=== PATIENT | male | born 1965 | race Caucasian/White ===

== ENCOUNTER 2023-10-07 16:18 | Emergency (ER) | payer OTHER, MEDICARE ==
[~2023-10-07] VITALS: Ht 177.8 cm; Wt 90.9 kg
[2023-10-07] MEDS: LORazepam 1 MG tablet PO ONE (18:10)
[2023-10-07 18:11] LABS: BASOPHILS # (AUTO) 0.1 X10'3 (0-0.2); BASOPHILS % (AUTO) 1.2 % (0-1); EOSINOPHILS % (AUTO) 0.6 % (0-6); HEMATOCRIT 43.9 % (42.0-52.0); HEMOGLOBIN 14.9 g/dl (14.0-17.9); LYMPHOCYTES # (AUTO) 1.3 X10'3 (1.1-4.8); LYMPHOCYTES % (AUTO) 19.1 % (21-51); MEAN CORPUSCULAR VOLUME 91.1 FL (78-98); MEAN PLATELET VOLUME 8.1 FL (7.4-10.4); MONOCYTES # (AUTO) 0.6 X10'3 (0-0.9); MONOCYTES % (AUTO) 7.8 % (2-12); NEUTROPHILS % (AUTO) 71.3 % (42-75); PLATELET COUNT 425 X10'3 (140-440); RED BLOOD COUNT 4.82 X10'6 (4.70-6.10); RED CELL DISTRIBUTION WIDTH 13.7 % (11.5-14.5); WHITE BLOOD COUNT 7.1 X10'3 (4.5-11.0)
[2023-10-07 18:17] LABS: BILIRUBIN,URINE NEGATIVE (Neg); CLARITY,URINE CLEAR (Clear); COLOR,URINE YELLOW (Yellow); GLUCOSE, URINE NEGATIVE (Neg); KETONES,URINE NEGATIVE (Neg); LEUKOCYTE ESTERASE ,URINE NEGATIVE (Neg); NITRITES, URINE NEGATIVE (Neg); OCCULT BLOOD,URINE NEGATIVE (Neg); PROTEIN,URINE NEGATIVE (Neg); UROBILINOGEN,URINE 0.2 E.U/dL (0.2-1.0)
[2023-10-07 18:20] LABS: UA COLLECTION TYPE VOIDED
[2023-10-07] MEDS ORDERED: ALBU8HFA INH (18:20)
[2023-10-07] MEDS ORDERED: CARB-212 PO (18:20)
[2023-10-07 18:22] LABS: ANION GAP 5 (8-16); BLOOD UREA NITROGEN 13 MG/DL (7-18); BUN/CREATININE RATIO 13.3 (10.0-20.0); CALCIUM 7.7 MG/DL (8.5-10.1); CHLORIDE 107 MMOL/L (99-107); CREATININE 0.98 MG/DL (0.60-1.10); GLUCOSE 82 MG/DL (70-104); POTASSIUM 3.8 MMOL/L (3.5-5.1); SALICYLATE 1.3 MG/DL (4.0-20.0); SODIUM 143 MMOL/L (135-145); eCRCL 87 ML/MIN; eGFR 79 ML/MIN
[2023-10-07 18:30] LABS: ACETAMINOPHEN < 2.0 UG/ML (10-30); ETHANOL < 10 MG/DL (<10)
[2023-10-07 18:34] LABS: URINE AMPHETAMINE SCREEN NEGATIVE (Neg); URINE BARBITUATE SCREEN NEGATIVE (Neg); URINE BENZODIAZEPINES SCREEN NEGATIVE (Neg); URINE CANNABINOID SCREEN NEGATIVE (Neg); URINE COCAINE SCREEN NEGATIVE (Neg); URINE METHADONE SCREEN NEGATIVE (Neg); URINE OPIATE SCREEN NEGATIVE (Neg); URINE PHENCYCLIDINE SCREEN NEGATIVE (Neg)
[2023-10-07] MEDS ORDERED: FLO0.4C PO (18:49)
[2023-10-07] MEDS ORDERED: AMLO-139 PO (18:52)
[2023-10-07] MEDS ORDERED: AMOX-580 PO (18:55)
[2023-10-07] MEDS ORDERED: RISP2TAB52 PO (18:59)
[2023-10-07] MEDS ORDERED: albuterol 2.5 MG/3 ML nebule NEB PRN (19:25)
[2023-10-07] MEDS ORDERED: AMLO10TA13 PO (19:34)
[2023-10-07] MEDS: risperiDONE 2mg tablet PO SCH (20:40)
[2023-10-07] MEDS: CARBAMAZEPINE 200 MG PO SCH (20:40)
[2023-10-07] MEDS: temazepam 15mg capsule PO ONE (20:40)
[2023-10-08] MEDS: tamsulosin 0.4mg capsule PO SCH (08:36)
[2023-10-08] MEDS: amLODIPine 5mg tablet PO SCH (08:36)
[2023-10-08] MEDS: LORazepam 1 MG tablet PO ONE ×2 (16:26→19:51)
[2023-10-08] MEDS: temazepam 15mg capsule PO ONE (19:51)
[2023-10-09 05:55] VITALS: BP_DIAS 82; TEMP 96.9; O2SAT 100
[2023-10-09 08:51] VITALS: BP_SYST 153; PULSE 66
[2023-10-09 09:40] VITALS: RESP 16
[2023-10-09 14:44] LABS: COVID19 ID NOW NEGATIVE (Neg)
== END 2023-10-09 15:45 ==
LOC: ER 16:20
DX: R45.851 Suicidal ideations (principal); I10 Essential (primary) hypertension; F31.9 Bipolar disorder, unspecified
CPT/HCPCS: 36415; 80048; 80305; 80320; 80329; 81003; 85025; 99285; C2617; 87635; 87811

== ENCOUNTER 2023-12-09 12:54 | Emergency (ER) | payer OTHER, MEDICARE ==
[~2023-12-09] VITALS: Ht 177.8 cm; Wt 85.0 kg
[~2023-12-09 12:54] MED LIST: ALBU8HFA INH; AMLO10TA13 PO; AMOX-580 PO; CARB-212 PO; FLO0.4C PO; RISP2TAB52 PO
[2023-12-09 14:25] LABS: BASOPHILS # (AUTO) 0.1 X10'3 (0-0.2); BASOPHILS % (AUTO) 1.2 % (0-1); EOSINOPHILS # (AUTO) 0.1 X10'3 (0-0.9); EOSINOPHILS % (AUTO) 1.2 % (0-6); HEMATOCRIT 37.1 % (42.0-52.0); HEMOGLOBIN 12.7 g/dl (14.0-17.9); LYMPHOCYTES # (AUTO) 1.2 X10'3 (1.1-4.8); LYMPHOCYTES % (AUTO) 20.6 % (21-51); MEAN CORPUSCULAR HEMOGLOBIN 30.7 PG (27.0-31.0); MEAN CORPUSCULAR HGB CONC 34.3 g/dL (33.0-36.5); MEAN CORPUSCULAR VOLUME 89.5 FL (78-98); MEAN PLATELET VOLUME 8.9 FL (7.4-10.4); MONOCYTES # (AUTO) 0.5 X10'3 (0-0.9); MONOCYTES % (AUTO) 7.8 % (2-12); NEUTROPHILS # (AUTO) 4.1 X10'3 (1.8-7.7); NEUTROPHILS % (AUTO) 69.2 % (42-75); PLATELET COUNT 355 X10'3 (140-440); RED BLOOD COUNT 4.15 X10'6 (4.70-6.10); RED CELL DISTRIBUTION WIDTH 13.3 % (11.5-14.5)
[2023-12-09 14:46] LABS: ALBUMIN 3.4 G/DL (3.4-5.0); ANION GAP 6 (8-16); BLOOD UREA NITROGEN 10 MG/DL (7-18); BUN/CREATININE RATIO 10.1 (10.0-20.0); CHLORIDE 107 MMOL/L (99-107); CREATININE 0.99 MG/DL (0.60-1.10); ETHANOL < 10 MG/DL (<10); GLUCOSE 89 MG/DL (70-104); POTASSIUM 3.5 MMOL/L (3.5-5.1); SODIUM 141 MMOL/L (135-145); THYROID STIMULATING HORMONE 0.79 ulU/ml (0.34-4.50); TOTAL CARBON DIOXIDE 27.8 MMOL/L (24-32); eCRCL 85 ML/MIN; eGFR 78 ML/MIN
[2023-12-09 15:25] LABS: BILIRUBIN,URINE NEGATIVE (Neg); CLARITY,URINE CLEAR (Clear); COLOR,URINE YELLOW (Yellow); GLUCOSE, URINE NEGATIVE (Neg); KETONES,URINE NEGATIVE (Neg); LEUKOCYTE ESTERASE ,URINE NEGATIVE (Neg); NITRITES, URINE NEGATIVE (Neg); OCCULT BLOOD,URINE NEGATIVE (Neg); PROTEIN,URINE NEGATIVE (Neg); UROBILINOGEN,URINE 0.2 E.U/dL (0.2-1.0)
[2023-12-09 15:31] LABS: UA COLLECTION TYPE CLN CATCH MIDSTREAM
[2023-12-09 15:43] LABS: URINE AMPHETAMINE SCREEN NEGATIVE (Neg); URINE BARBITUATE SCREEN NEGATIVE (Neg); URINE BENZODIAZEPINES SCREEN POSITIVE (Neg); URINE CANNABINOID SCREEN NEGATIVE (Neg); URINE COCAINE SCREEN NEGATIVE (Neg); URINE METHADONE SCREEN NEGATIVE (Neg); URINE OPIATE SCREEN NEGATIVE (Neg); URINE PHENCYCLIDINE SCREEN NEGATIVE (Neg)
[2023-12-09 18:34] VITALS: BP 148/61; PULSE 111; RESP 18; TEMP 98.6; O2SAT 96
== END 2023-12-09 19:37 | disposition home or self-care (01) ==
LOC: ER 12:54
DX: F32.A Depression, unspecified (principal); R45.851 Suicidal ideations; Z20.822 Contact with and (suspected) exposure to COVID-19
CPT/HCPCS: 36415; 80048; 80305; 80320; 81003; 84443; 85025; 87811; 99283; 99284